=== PATIENT | female | born 1985 | race Two or more races ===

== ENCOUNTER 2019-08-30 23:58 | Emergency (ER) | payer OTHER ==
[~2019-08-30] VITALS: Ht 162.6 cm; Wt 81.8 kg
[2019-08-31 00:30] VITALS: BP 129/71
[2019-08-31] MEDS ORDERED: LORazepam 1 MG TABLET PO ONE (00:30)
[2019-08-31] MEDS ORDERED: TraZODone HCL 50 MG TABLET PO ONE (00:30)
[2019-08-31] MEDS ORDERED: ALBU8HFA IH (00:30)
[2019-08-31] MEDS ORDERED: CICL6.1H2 IH (00:30)
[2019-08-31] MEDS ORDERED: TOPIRAMATE 100 MG TABLET PO ONE (00:30)
== END 2019-08-31 01:41 | disposition home or self-care (01) ==
LOC: EMS 23:59
DX: F31.9 Bipolar disorder, unspecified (principal); F41.9 Anxiety disorder, unspecified; R07.89 Other chest pain; F17.210 Nicotine dependence, cigarettes, uncomplicated; F11.90 Opioid use, unspecified, uncomplicated; F15.90 Other stimulant use, unspecified, uncomplicated